=== PATIENT | male | born 1970 | race Caucasian/White ===

== ENCOUNTER → 2023-11-02 | Outpatient (CLI) | payer BC ==
--- NOTE | 2023-11-02 11:32 | CT ---
EXAMINATION TYPE: CT abdomen pelvis w con DATE OF EXAM: 11/02/2023 COMPARISON: NONE HISTORY: 53-year-old male K57.32 h/o abdominal pain, changes in bowel habits TECHNIQUE: Contiguous axial scanning of the abdomen and pelvis following administration of 100 ml Iso bogdan 300 IV contrast. Delayed images through the kidneys and coronal/sagittal reconstructions perform ed. CT DLP: 2541.6 mGycm Automated exposure control for dose reduction was used. FINDINGS: The heart is normal size without pericardial effusion. Lung bases clear without pleural effusion. Low attenuation of the hepatic parenchyma without focal lesion. Portal venous system is patent. No bi liary ductal dilatation is apparent. Gallbladder, adrenal glands, kidneys, and pancreas within normal limits. The spleen is enlarged at 16.3 cm measured on coronal series. Hilar splenule noted. No dilated small bowel, free fluid, or free air. No mesenteric or retroperitoneal lymphadenopathy. Normal appendix. Oral contrast progressed faintly into the sigmoid colon. Mild overall stool burden. Mild proximal sigmoid diverticulosis. There is irregular moderate circumferential wall thickening of the rectum with some presacral strandi ng and at least 10 rounded perirectal lymph nodes, largest measuring 1.2 cm. Patulous bilateral inguinal canals with fatty small to moderate-sized inguinal hernias. No other pelv ic lymphadenopathy seen. No abnormal fluid collection in the pelvis. Bones: Mild degenerative change of the hips. Facet arthropathy lower lumbar spine. Nonspecific sclerotic focus towards the left L3 pedicle. Additional small vertebral body focus on the right at L3. Nonspecific. Probably bone islands. No osseous destructive process seen. IMPRESSION: 1. MODERATE IRREGULAR CIRCUMFERENTIAL WALL THICKENING OF THE RECTUM WITH SOME PRESACRAL STRANDING AND NUMEROUS ADJACENT PERIRECTAL LYMPH NODES MEASURING UP TO 1.2 CM. RECTAL CARCINOMA SHOULD BE EXCLUDED . 2. A COUPLE NONSPECIFIC SCLEROTIC FOCI WITHIN THE L3 VERTEBRAL BODY MAY REPRESENT BONE ISLANDS. IF FU RTHER WORKUP REVEALS RECTAL CARCINOMA, CONSIDER FURTHER TESTING WITH NUCLEAR MEDICINE BONE SCAN TO SESS FOR ANY ABNORMAL UPTAKE. 3. INCIDENTAL: HEPATIC STEATOSIS. SPLENOMEGALY AT 16.3 CM. CLINICALLY CORRELATE.
== END | disposition home or self-care (01) ==
LOC: RADCTMAIN 09:27
PROVIDERS: ATTEND Surgery Plastic and Reconstructive Surgery
DX: K57.32 Diverticulitis of large intestine without perforation or abscess without bleeding (principal); K76.0 Fatty (change of) liver, not elsewhere classified; K62.89 Other specified diseases of anus and rectum; R16.1 Splenomegaly, not elsewhere classified
CPT/HCPCS: 74177; Q9967

== ENCOUNTER 2023-12-21 08:54 | Day surgery (SDC) | payer BC ==
[2023-12-16 13:16] VITALS: BMI 34.9
[~2023-12-21 08:54] MED LIST: LACTATED RINGERS 1,000 ML IV SCH
--- NOTE | 2023-12-21 09:02 | P.GSHP ---
History of Present Illness H&P Date: 12/21/23 CHIEF COMPLAINT: Colon screen HISTORY OF PRESENT ILLNESS: The patient is a 53-year-old male who presents for colon screen. Lower endoscopy was offered for further evaluation and management. PAST MEDICAL HISTORY: Please see list. PAST SURGICAL HISTORY: Please see list. MEDICATIONS: Please see list. ALLERGIES: Please see list. SOCIAL HISTORY: No illicit drug use FAMILY HISTORY: No reports of Crohn disease or ulcerative colitis. REVIEW OF ORGAN SYSTEMS: CONSTITUTIONAL: No reports of fevers or chills. PHYSICAL EXAM: VITAL SIGNS: Stable GENERAL: Well-developed pleasant in no acute distress. HEENT: No scleral icterus. Extraocular movements grossly intact. Moist buccal mucosa. NECK: Supple without lymphadenopathy. CHEST: Unlabored respirations. Equal bilateral excursions. CARDIOVASCULAR: Regular rate and rhythm. Distal 2+ pulses. ABDOMEN: Soft, nontender, nondistended. MUSCULOSKELETAL: No clubbing, cyanosis, or edema. ASSESSMENT: 1. Colon screen. PLAN: 1. Recommend proceeding with a lower endoscopy Past Medical History Past Medical History: Hypertension Additional Past Medical History / Comment(s): gout, recently lost 65 lbs - was on metformin to help w/ weight loss History of Any Multi-Drug Resistant Organisms: None Reported Additional Past Surgical History / Comment(s): colonoscopy Past Anesthesia/Blood Transfusion Reactions: No Reported Reaction Additional Past Anesthesia/Blood Transfusion Reaction / Comment(s): has never had general anesthetic Smoking Status: Never smoker - Past Family History Father Family Medical History: Coronary Artery Disease (CAD) Additional Family Medical History / Comment(s): cardiac stents Medications and Allergies Home Medications Medication Instructions Recorded Confirmed Type Aspirin 81 mg PO HS 11/22/23 12/16/23 History Losartan Potassium 50 mg PO HS 11/22/23 12/16/23 History Sertraline [Zoloft] 100 mg PO HS 11/22/23 12/16/23 History allopurinoL [Zyloprim] 100 mg PO HS 11/22/23 12/16/23 History hydroCHLOROthiazide 12.5 mg PO QAM 11/22/23 12/16/23 History Allergies Allergy/AdvReac Type Severity Reaction Status Date / Time Penicillins Allergy Swelling Verified 12/16/23 12:53
[2023-12-21] MEDS: LACTATED RINGERS 1,000 ML IV ONE ×2 (09:10→09:28)
[2023-12-21] MEDS ORDERED: PROPOFOL 10 MG/ML 20 ML VIAL IV ONE (09:29)
[2023-12-21] MEDS: IV FLUID CONTINUATION 1,000 ML IV ONE (09:46)
[2023-12-21 09:51] VITALS: RESP 16; TEMP 97.2
[2023-12-21 09:53] VITALS: PULSE 78
[2023-12-21 10:39] VITALS: BP 123/78
--- NOTE | 2023-12-21 10:46 | P.PCN ---
Date of Procedure: 12/21/23 Description of Procedure: PREOPERATIVE DIAGNOSIS: Rectal bleeding Colitis Family history diverticulitis Colonoscopy screening, first Abnormal CT scan for rectal mass POSTOPERATIVE DIAGNOSIS: Chronic constipation Rectal neoplasm, OPERATION: Colonoscopy to the ileocecal valve and appendiceal orifice, cecum Colonoscopy with hot snare polypectomy Colonoscopy with cold forceps biopsy SURGEON: Jeannie Delarosa MD. ANESTHESIA: MAC. INDICATIONS: The patient is an 64-year-old male who presents family history of malignant colon polyps and personal history of colon polyps. Last colonoscopy 5 years. Benefits and risks were described and informed consent was obtained. DESCRIPTION OF PROCEDURE: The patient had undergone Sutab prep. The patient had been brought into the operating room and laid in the left lateral decubitus position. After adequate intravenous sedation, the rectum was examined with 2% lidocaine jelly. The prostate was unremarkable. External hemorrhoids were encountered. The rectal tone was within normal limits. No lesions were palpated in the rectal vault. An Olympus colonoscope was advanced until the cecum, ileocecal valve and appendiceal orifice were clearly viewed. The prep was fair. Sigmoid diverticulosis was encountered. Colonic polyps were found and removed. No ev idence of focal colitis was found. Retroflexion of the scope demonstrated grade 2 internal hemorrhoids without active bleeding or inflammation. The colon was desufflated. The patient had tolerated the procedure well. Withdrawal time was over 6 minutes. FINDINGS: Aronchick preparation quality scale 1 (1-5) Internal hemorrhoids, grade 3 with recent inflammation and bleeding External hemorrhoids, grade 4. No arteriovenous malformations. Sigmoid diverticulosis Removal of 2 polyps: - Snare polypectomy 20 cm from the anal verge, 5 mm tubulovillous adenoma polyp. - Snare polypectomy 39 cm from the anal verge, 8 mm flat villous adenoma polyp. - Snare polypectomy 50 cm from the anal verge, 12 mm flat villous adenoma polyp. - Cold forceps biopsy at 30 cm from the anal verge, 4 mm polyp. - Cold forceps biopsy at 40 cm from the anal verge, 5 mm polyp. - Cold forceps biopsy at 45 cm from the anal verge, 4 mm polyp. - Cold forceps biopsy at 55 cm from the anal verge, 3 mm polyp. - Cold forceps biopsy at 60 cm from the anal verge, 4 mm polyp. - Cold forceps biopsy at 65 cm from the anal verge, 3 mm polyp. - Cold forceps biopsy at 75 cm from the anal verge, 4 mm polyp. - Cold forceps biopsy at mid transverse colon, 5 mm polyp. - Cold forceps biopsy at proximal transverse colon, 4 mm polyp. No focal colitis. RECOMMENDATIONS: Given severity of tubular adenomas, recommend repeat colonoscopy 1 year. Findings consistent with rectal carcinoma 50 cm to for circumference 10 cm from the rectal verge to the anal verge firm, friable, snare polypectomy including cold forcep biopsies obtained. CT of the abdomen pelvis previously obtained. Patient discussed will need MRI, chemoradiation, referral to colorectal specialist for additional management. Very poor prep, grade 4+, will likely need repeat scope due to poor prep Plan - Discharge Summary Discharge Rx Participant: No New Discharge Prescriptions: Continue hydroCHLOROthiazide 12.5 mg PO QAM allopurinoL [Zyloprim] 100 mg PO HS Sertraline [Zoloft] 100 mg PO HS Losartan Potassium 50 mg PO HS Aspirin 81 mg PO HS Discharge Medication List Aspirin 81 mg PO HS 11/22/23 [History] Losartan Potassium 50 mg PO HS 11/22/23 [History] Sertraline [Zoloft] 100 mg PO HS 11/22/23 [History] allopurinoL [Zyloprim] 100 mg PO HS 11/22/23 [History] hydroCHLOROthiazide 12.5 mg PO QAM 11/22/23 [History] Follow up Appointment(s)/Referral(s): Jeannie Delarosa MD [STAFF PHYSICIAN] - 12/27/23 4:00 pm Patient Instructions/Handouts: *Surgery [facility] - (Anesthesia) Discharge Instructions Outpatient Surgery, Colorectal Polyps (GEN) Activity/Diet/Wound Care/Special Instructions: Follow-up in the office for biopsy results Discharge Disposition: HOME SELF-CARE
== END 2023-12-21 10:52 | disposition home or self-care (01) ==
LOC: ORWHC2ENDO 08:54
PROVIDERS: ATTEND Surgery Plastic and Reconstructive Surgery
DX: C20 Malignant neoplasm of rectum (principal); K62.5 Hemorrhage of anus and rectum; K52.9 Noninfective gastroenteritis and colitis, unspecified; K59.09 Other constipation; K57.30 Diverticulosis of large intestine without perforation or abscess without bleeding; K64.2 Third degree hemorrhoids; F41.9 Anxiety disorder, unspecified; I10 Essential (primary) hypertension; E66.01 Morbid (severe) obesity due to excess calories; Z82.49 Family history of ischemic heart disease and other diseases of the circulatory system; Z79.82 Long term (current) use of aspirin; Z79.899 Other long term (current) drug therapy; Z88.0 Allergy status to penicillin; Z68.34 Body mass index [BMI] 34.0-34.9, adult
CPT/HCPCS: 88305; 45380; 45385; J2704

== ENCOUNTER → 2024-01-14 | Outpatient (CLI) | payer BC ==
--- NOTE | 2024-01-15 13:59 | PE ---
EXAMINATION TYPE: PET CT fusion skull to thigh DATE OF EXAM: 01/14/2024 CLINICAL INDICATION:Male, 53 years old with history of C20; TECHNIQUE: Following the intravenous administration of 11.2 mCi of F-18 FDG, whole body images are performed from the skull base to the midthigh. Images are reviewed on the computer in the coronal, a xial, and sagittal planes. Reconstructed rotating images are created on independent workstation and reviewed on the computer. A non-contrast CT is performed in conjunction with the PET scan. Glucose level 87 mg/dL CT DLP: 1086.93 mGycm, Automated exposure control for dose reduction was used. COMPARISON: CT 11/02/2023, PET/CT None, FINDINGS: Mediastinal SUV mean is 1.8. Hepatic parenchyma SUV mean is 2.6. SKULL BASE AND NECK: No suspicious radiotracer activity. CHEST, MEDIASTINUM, AND HILAR REGION: No suspicious radiotracer activity. ABDOMEN AND PELVIS: * Circumferential wall thickening of the rectum measuring up to 14 mm. Max SUV 28.6. * Multiple mesorectal fascia lymph node measuring up to 7 mm Max SUV 6.2. There is at least 6 lymph nodes identified. * Presacral lymph node measuring up to 13 mm with max SUV 14.7 MUSCULOSKELETAL STRUCTURES: No suspicious radiotracer activity. OTHER CT: Bilateral fat-containing inguinal hernias. IMPRESSION: Rectal wall thickening compatible with malignancy with multiple mesorectal fascia lymph nodes and pre sacral lymph nodes concerning for metastatic disease. No evidence for metastatic disease in the thora x or head and neck.
== END | disposition home or self-care (01) ==
LOC: RADPETMAIN 14:15
PROVIDERS: ATTEND Internal Medicine Hematology & Oncology
DX: C20 Malignant neoplasm of rectum (principal)
CPT/HCPCS: 78815; A9552

== ENCOUNTER → 2024-01-17 | Outpatient (CLI) | payer BC ==
--- NOTE | 2024-01-18 08:45 | MR ---
EXAMINATION TYPE: MR Rectal wo con DATE OF EXAM: 01/17/2024 9:55 AM CLINICAL INDICATION:Male, 53 years old with history of C20 MALIGNANT NEOPLASM OF RECTUM; [facility], COMPARISON: Pet/CT 01/14/2024. TECHNIQUE: Multiplanar, multisequence imaging was performed on a 3T MR scanner with optimized small f ield of view imaging of the rectum. Orthogonal high resolution T2 weighted imaging was obtained thro ugh the rectal mass with additional sequences including T1 weighted images and diffusion weighted kar ging. IV CONTRAST: None. FINDINGS: IMAGE QUALITY: Adequate PRIMARY TUMOR: MORPHOLOGY, LOCATION, AND CHARACTERISTICS: Distance to anal verge: 4.9 cm Distance to top of anal sphincter complex/anorectal junction: 0.0 cm Relationship to the anterior peritoneal reflection: below Craniocaudal length: 8.9 cm Circumferential location (o'clock position): 12 o'clock to 7 o'clock Morphology: Semi-Annular Mucinous: No MRI Rectal Cancer T Category: T3c (tumor penetrates >5-15 mm beyond muscularis propria). There is n o invasion of adjacent structures. FOR LOW RECTAL TUMORS - Invasion of anal sphincter complex Level of invasion: Upper anal canal EXTRAMURAL VENOUS INVASION (EMVI): Not definitively visualized. CIRCUMFERENTIAL RESECTION MARGIN (for T3 only) Shortest distance of tumor to MRF (or anticipated CRM): 1-4 mm (location) near the anorectal junctio n very close to the mesorectal fascia. (not applicable if tumor at peritonealized portion of the rectum) Is there a separate tumor deposit, lymph node, or EMVI threatening (> 1 mm and < 2 mm) or invading (< 1 mm) the mesorectal fascia (MRF) (if yes, note location): Yes LYMPH NODES: Mesorectal/superior rectal lymph nodes and/or tumor deposits: N3 - Presence of suspicious extra-mesorectal lymph nodes *Suspicious morphologic criteria: (1) round shape, (2) irregular borders, (3) heterogenous signal int ensity Superior most suspicious lymph node/deposit is located: Multiple presacral sacral promontory lymph no good present. Extra-mesorectal lymph nodes: any suspicious: Yes. Presacral lymph nodes/sacral promontory. (mesorectal, superior rectal, middle rectal, inferior rectal, sigmoid mesenteric, inferior mesenteric , lateral sacral, presacral, sacral promontory) Locoregional: internal iliac, obturator M1: external iliac, common iliac, inguinal, retroperitoneal OTHER: Prostatomegaly. IMPRESSION: T Stage: T3c (tumor penetrates >5-15 mm beyond muscularis propria). N Stage: N3 - Presence of suspicious extra-mesorectal lymph nodes CRM: Threatened Sphincter Involvement: Yes Suspicious extramesorectal nodes: Yes
== END | disposition home or self-care (01) ==
LOC: RADMRIMAIN 08:46
PROVIDERS: ATTEND Internal Medicine Hematology & Oncology
DX: C20 Malignant neoplasm of rectum (principal)
CPT/HCPCS: 72195

== ENCOUNTER 2024-02-09 12:52 | Day surgery (SDC) | payer BC ==
[2024-02-07 10:02] VITALS: BMI 34.4
[~2024-02-09 12:52] MED LIST changes: +HYDROmorphone 0.5 MG/0.5 ML SYRINGE IVP PRN; +LIDOCAINE 1% (10MG/ML) FOR IV START INTRADERMA PRN; +MIDAZOLAM 2 MG/2 ML VIAL IV PRN; +Pre Op ABX Message 1 EACH MISC MISCELLANE ONE; +fentaNYL (PF) 50 MCG/ML 2 ML AMP IVP PRN
[2024-02-09] MEDS: IV FLUID CONTINUATION 1,000 ML IV ONE (13:30)
--- NOTE | 2024-02-09 13:40 | P.GSHP ---
History of Present Illness H&P Date: 02/09/24 Chief Complaint: Rectal cancer 53-year-old male recently diagnosed in December with stage III rectal cancer. Patient will be starting neoadjuvant chemoradiation in the near future. Here for Port-A-Cath. Has not had 1 previously. Past Medical History Past Medical History: Cancer, Hypertension Additional Past Medical History / Comment(s): gout, NEW DX RECTAL CANCER History of Any Multi-Drug Resistant Organisms: None Reported Additional Past Surgical History / Comment(s): colonoscopy Past Anesthesia/Blood Transfusion Reactions: No Reported Reaction Additional Past Anesthesia/Blood Transfusion Reaction / Comment(s): has never had general anesthetic Smoking Status: Never smoker - Past Family History Father Family Medical History: Coronary Artery Disease (CAD) Additional Family Medical History / Comment(s): cardiac stents Brother(s) Family Medical History: Cancer Additional Family Medical History / Comment(s): SKIN Medications and Allergies Home Medications Medication Instructions Recorded Confirmed Type Losartan Potassium 25 mg PO HS 11/22/23 02/09/24 History Sertraline [Zoloft] 100 mg PO HS 11/22/23 02/09/24 History allopurinoL [Zyloprim] 100 mg PO HS 11/22/23 02/09/24 History hydroCHLOROthiazide 12.5 mg PO QAM 11/22/23 02/09/24 History Allergies Allergy/AdvReac Type Severity Reaction Status Date / Time Penicillins Allergy Swelling Verified 02/09/24 13:38 shellfish derived [Shellfish] Allergy Swelling Verified 02/09/24 13:38 Surgical - Exam Physical exam: General: Well-developed, well-nourished HEENT: Normocephalic, sclerae nonicteric Abdomen: Nontender, nondistended Extremities: No edema Neuro: Alert and oriented Assessment and Plan (1) Rectal cancer Narrative/Plan: Will proceed with Port-A-Cath placement at this time. Risks of bleeding, infe ction, DVT, pneumothorax, catheter malfunction, anesthesia related complications were discussed. The patient understands and wishes to proceed. Current Visit: Yes Status: Acute Code(s): C20 - MALIGNANT NEOPLASM OF RECTUM SNOMED Code(s): 788702478
[2024-02-09] MEDS: ONDANSETRON 4 MG/2 ML VIAL IVP ONE (14:06)
[2024-02-09] MEDS: DEXAMETHASONE SOD PHOSPHATE 4 MG/ML 1 ML VIAL IV ONE (14:06)
[2024-02-09] MEDS: HEPARIN SODIUM,PORCINE 5,000 UNIT/ML 1 ML VIAL SQ PRN (14:07)
[2024-02-09] MEDS: ACETAMINOPHEN TAB 500 MG TAB PO PRN (14:07)
[2024-02-09] MEDS ORDERED: LIDOCAINE 1% INJ 10MG/ML (20 ML MDV) ONE (14:59)
[2024-02-09] MEDS ORDERED: MIDAZOLAM 2 MG/2 ML VIAL ONE (14:59)
[2024-02-09] MEDS ORDERED: SUCCINYLCHOLINE CHLORIDE 200 MG/10 ML VIAL IV ONE (14:59)
[2024-02-09] MEDS ORDERED: fentaNYL (PF) 50 MCG/ML 2 ML AMP ONE (14:59)
[2024-02-09] MEDS ORDERED: PROPOFOL 10 MG/ML 20 ML VIAL IV ONE (14:59)
[2024-02-09] MEDS: SODIUM CHLORIDE 0.9% 50 ML with ceFAZolin 2,000 MG IV ONE (15:03)
[2024-02-09] MEDS: LIDOCAINE 1% INJ 10MG/ML (20 ML MDV) SQ ONE ×2 (15:38)
[2024-02-09 16:17] VITALS: TEMP 97.6
--- NOTE | 2024-02-09 16:51 | XR ---
EXAMINATION TYPE: XR chest 1V portable DATE OF EXAM: 02/09/2024 Comparison: PET/CT 01/14/2024 Clinical History: 53-year-old male POST PORT-A-CATH PLACEMENT Findings: Heart upper limits of normal in size. Prominent bandlike areas of opacity probably atelectasis. More focal patchy density at the left base and also at the right apex. Graft placement of right anterior c hest wall injection port. Catheter tip at the mid SVC level. Impression: 1. Right anterior chest wall injection port with catheter tip at the mid SVC level. 2. New focal right apical opacity and left basilar opacity. Findings could represent areas of patchy atelectasis versus developing infiltrate. If concern for vascular complication after port placement, CT can exclude hematoma at the right apex. 3. Other bandlike areas of atelectasis in the lungs.
[2024-02-09 17:51] VITALS: RESP 14
--- NOTE | 2024-02-09 18:21 | P.OP ---
Date of Procedure: 02/09/24 Procedure(s) Performed: PREOPERATIVE DIAGNOSIS: rectal cancer POSTOPERATIVE DIAGNOSIS: Same PROCEDURE: Port-A-Cath placement SURGEON: Rachel EBL: Minimal ANESTHESIA: Sedation COMPLICATIONS: None OPERATIVE PROCEDURE: Patient was brought and placed on the operative table in the supine position. The patient was sedated per anesthesia that time. The chest and neck were prepped and draped in usual sterile fashion. The ultrasound probe was used to identify the location of the right internal jugular vein. The skin was localized with lidocaine. The Seldinger needle was advanced into the IJ under ultrasound guidance. The wire was advanced through the needle under fluoroscopic guidance into the superior vena cava. A port pocket was created in the right infraclavicular location. The catheter was tunneled from the wire entrance site to the port pocket. The port was then connected to the catheter. The dilator introducer was threaded over the guidewire. The guidewire and dilator were then removed. The catheter was advanced through the introducer and introducer was then removed. The tip was seen to be in the right atrial junction. Port was flushed with both saline and a Hep-Lock solution. There was good flow both in and out of the port. The port was sutured in underlying tissues using 3-0 silk sutures. The subcutaneous tissues were reapproximated using 3-0 Vicryl sutures and the skin at both locations using 4-0 Monocryl sutures. Steri-Strips and sterile dressings then applied. DISPOSITION: Stable to recovery room
[2024-02-09 18:31] VITALS: BP 139/81; PULSE 84
--- NOTE | 2024-02-10 12:01 | FL ---
EXAMINATION TYPE: FL guided central line placemt Intraoperative/procedural fluoroscopic services were provided. Total fluoroscopy time is 11.2 seconds with a total of 1 submitted images to PACS. Please see the operative/procedural note for further details. DAP: 1.0204 Gycm2
== END 2024-02-09 18:52 | disposition home or self-care (01) ==
LOC: OR 12:52
PROVIDERS: ATTEND Surgery
DX: C20 Malignant neoplasm of rectum (principal); I10 Essential (primary) hypertension; M10.9 Gout, unspecified; F41.9 Anxiety disorder, unspecified; F12.90 Cannabis use, unspecified, uncomplicated; Z91.013 Allergy to seafood; Z88.0 Allergy status to penicillin; Z79.899 Other long term (current) drug therapy
CPT/HCPCS: 77001; 71045; 36561; C1788; J2250; J0330; J1644; J1100; J2405; J0690; J2001; J3010; J1642; J2704

== ENCOUNTER 2024-02-14 18:46 | Emergency (ER) | payer BC ==
[2024-02-14 18:56] VITALS: RESP 18; TEMP 97.8
--- NOTE | 2024-02-14 19:25 | ED ---
General Adult HPI - General Chief complaint: Nausea/Vomiting/Diarrhea Stated complaint: low pulse/chemo port out/vomitting Time Seen by Provider: 02/14/24 19:15 Source: patient, RN notes reviewed, old records reviewed Mode of arrival: ambulatory Limitations: no limitations - History of Present Illness Initial comments: This is a 53-year-old male who presents to the emergency department complaining of nausea vomiting. Patient states he got his first dose of chemo yesterday and was sent home with a infusion of chemo via his new port. Patient states has not been able to keep anything down all day and he has been vomiting since 8:00 this morning. Patient states he was told by Dr. Vidal to come in and get evaluated and to have the chemo stopped. Patient denies any fever or chills. Patient has any abdominal pain. Patient denies any chest pain Diffley breathing shortness of breath. - Related Data Home Medications Medication Instructions Recorded Confirmed Losartan Potassium 25 mg PO HS 11/22/23 02/09/24 Sertraline [Zoloft] 100 mg PO HS 11/22/23 02/09/24 allopurinoL [Zyloprim] 100 mg PO HS 11/22/23 02/09/24 hydroCHLOROthiazide 12.5 mg PO QAM 11/22/23 02/09/24 Allergies Allergy/AdvReac Type Severity Reaction Status Date / Time Penicillins Allergy Swelling Verified 02/14/24 18:56 shellfish derived [Shellfish] Allergy Swelling Verified 02/14/24 18:56 Review of Systems ROS Statement: Those systems with pertinent positive or pertinent negative responses have been documented in the HPI. ROS Other: All systems not noted in ROS Statement are negative. Past Medical History Past Medical History: Hypertension Additional Past Medical History / Comment(s): gout, recently lost 65 lbs - was on metformin to help w/ weight loss History of Any Multi-Drug Resistant Organisms: None Reported Additional Past Surgical History / Comment(s): colonoscopy Past Anesthesia/Blood Transfusion Reactions: No Reported Reaction Additional Past Anesthesia/Blood Transfusion Reaction / Comment(s): has never had general anesthetic Past Psychological History: Anxiety Smoking Status: Never smoker - Past Family History Father Family Medical History: Coronary Artery Disease (CAD) Additional Family Medical History / Comment(s): cardiac stents Brother(s) Family Medical History: Cancer Additional Family Medical History / Comment(s): SKIN General Exam - General Exam Comments Initial Comments: GENERAL: Patient is well-developed and well-nourished. Patient is nontoxic and well- hydrated and is in mild distress. ENT: Neck is soft and supple. No significant lymphadenopathy is noted. Oropharynx is clear. Moist mucous membranes. Neck has full range of motion without eliciting any pain. EYES: The sclera were anicteric and conjunctiva were pink and moist. Extraocular movements were intact and pupils were equal round and reactive to light. Eyelids were unremarkable. PULMONARY: Unlabored respirations. Good breath sounds bilaterally. No audible rales rhonchi or wheezing was noted. CARDIOVASCULAR: There is a regular rate and rhythm without any murmurs gallops or rubs. ABDOMEN: Soft and nontender with normal bowel sounds. SKIN: Skin is clear with no lesions or rashes and otherwise unremarkable. NEUROLOGIC: Patient is alert and oriented x3. Cranial nerves II through XII are grossly intact. Motor and sensory are also intact. Normal speech, volume and content. Symmetrical smile. MUSCULOSKELETAL: Normal extremities with adequate strength and full range of motion. LYMPHATICS: No significant lymphadenopathy is noted PSYCHIATRIC: Normal psychiatric evaluation. Limitations: no limitations Course Vital Signs 02/14/24 18:53 Temperature 97.8 F Pulse Rate 82 Respiratory 18 Rate Blood Pressure 146/94 O2 Sat by Pulse 96 Oximetry Medical Decision Making - Medical Decision Making Was pt. sent in by a medical professional or institution (LATISHA Viramontes, VEGETABLE CUTTER, urgent care, hospital, or [facility]...) When possible be specific @ -Patient was sent in by his oncologist Did you speak to anyone other than the patient for history (EMS, parent, family, police, friend...)? What history was obtained from this source @ -No Did you review nursing and triage notes (agree or disagree)? Why? @ -I reviewed and agree with nursing and triage notes Were old charts reviewed (outside hosp., previous admission, EMS record, old EK G, old radiological studies, urgent care reports/EKG's, [facility] records)? Report findings @ -No old charts were reviewed Differential Diagnosis? @ -Gastroenteritis, gastritis, adverse reaction to chemotherapy, this is not an all-inclusive list EKG interpreted by me (3pts min.). @ -As above X-rays interpreted by me (1pt min.). @ -None done CT interpreted by me (1pt min.). @ -None done U/S interpreted by me (1pt. min.). @ -None done What testing was considered but not performed or refused? (CT, X-rays, U/S, labs)? Why? @ -None What meds were considered but not given or refused? Why? @ -None Did you discuss the management of the patient with other professionals (professionals i.e. DrJames, PA, VEGETABLE CUTTER, lab, RT, psych nurse, administrator social welfare, knot tying operator, teacher, tactical intelligence officer, field nurse case manager)? Give summary @ -I spoke with Dr. Mendez he wanted the patient's chemo stopped and evaluated. Was smoking cessation discussed for >3mins.? @ -No Was critical care preformed (if so, how long)? @ -No Were there social determinants of health that impacted care today? How? (Homelessness, low income, unemployed, alcoholism, drug addiction, transportation, low edu. Level, literacy, decrease access to med. care, skilled nursing, rehab)? @ -No Was there de-escalation of care discussed even if they declined (Discuss DNR or withdrawal of care, Hospice)? DNR status @ -No What co-morbidities impacted this encounter? (DM, HTN, Smoking, COPD, CAD, Cancer, CVA, ARF, Chemo, Hep., AIDS, mental health diagnosis, sleep apnea, morbi d obesity)? @ -None Was patient admitted / discharged? Hospital course, mention meds given and route , prescriptions, significant lab abnormalities, going to OR and other pertinent info. @ -Patient was given 2 L normal saline. Patient's lab work was normal. Patient was feeling much better and he will be discharged home. Patient's chemo was also halted Undiagnosed new problem with uncertain prognosis? @ -No Drug Therapy requiring intensive monitoring for toxicity (Heparin, Nitro, Insulin, Cardizem)? @ -No Were any procedures done? @ -No Diagnosis/symptom? @ -Adverse medication reaction Acute, or Chronic, or Acute on Chronic? @ -Acute Uncomplicated (without systemic symptoms) or Complicated (systemic symptoms)? @ -Complicated Side effects of treatment? @ -No Exacerbation, Progression, or Severe Exacerbation? @ -No Poses a threat to life or bodily function? How? (Chest pain, USA, MA, pneumonia, PE, COPD, DKA, ARF, appy, cholecystitis, CVA, Diverticulitis, Homicidal, Suicidal, threat to staff... and all critical care pts) @ -No - Lab Data Result diagrams: 02/14/24 19:23 02/14/24 19:23 Lab Results 02/14/24 02/14/24 Range/Units 19:23 19:23 WBC 9.8 (3.8-10.6) k/uL RBC 4.47 (4.30-5.90) m/uL Hgb 12.4 L (13.0-17.5) gm/dL Hct 38.3 L (39.0-53.0) % MCV 85.5 (80.0-100.0) fL MCH 27.7 (25.0-35.0) pg MCHC 32.4 (31.0-37.0) g/dL RDW 13.4 (11.5-15.5) % Plt Count 219 (150-450) k/uL MPV 8.0 Neutrophils % 78 % Lymphocytes % 13 % Monocytes % 5 % Eosinophils % 1 % Basophils % 0 % Neutrophils # 7.7 (1.3-7.7) k/uL Lymphocytes # 1.3 (1.0-4.8) k/uL Monocytes # 0.5 (0-1.0) k/uL Eosinophils # 0.1 (0-0.7) k/uL Basophils # 0.0 (0-0.2) k/uL Sodium 139 (137-145) mmol/L Potassium 3.8 (3.5-5.1) mmol/L Chloride 107 (98-107) mmol/L Carbon Dioxide 26 (22-30) mmol/L Anion Gap 6 mmol/L BUN 17 (9-20) mg/dL Creatinine 0.76 (0.66-1.25) mg/dL Est GFR (CKD-EPI)AfAm >90 (>60 ml/min/1.73 sqM) Est GFR (CKD-EPI)NonAf >90 (>60 ml/min/1.73 sqM) Glucose 115 H (74-99) mg/dL Calcium 8.8 (8.4-10.2) mg/dL Magnesium 2.0 (1.6-2.3) mg/dL Total Bilirubin 0.5 (0.2-1.3) mg/dL AST 17 (17-59) U/L ALT 7 (4-49) U/L Alkaline Phosphatase 40 (38-126) U/L Total Protein 6.2 L (6.3-8.2) g/dL Albumin 3.7 (3.5-5.0) g/dL Disposition Clinical Impression: Vomiting due to chemotherapy Disposition: HOME SELF-CARE Condition: Good Instructions (If sedation given, give patient instructions): Acute Nausea and Vomiting (ED) Is patient prescribed a controlled substance at d/c from ED?: No Referrals: Tony Jolly MD [Primary Care Provider] - 1-2 days Time of Disposition: 20:44
[2024-02-14 19:31] LABS: Basophils % (A) 0 %; Eosinophils # (A) 0.1 k/uL (0-0.7); Eosinophils % (A) 1 %; HCT 38.3 % (39.0-53.0); HGB 12.4 gm/dL (13.0-17.5); Lymphocytes # (A) 1.3 k/uL (1.0-4.8); Lymphocytes % (A) 13 %; MCH 27.7 pg (25.0-35.0); MCHC 32.4 g/dL (31.0-37.0); MCV 85.5 fL (80.0-100.0); Monocytes # (A) 0.5 k/uL (0-1.0); Monocytes % (A) 5 %; Neutrophils # (A) 7.7 k/uL (1.3-7.7); Neutrophils % (A) 78 %; Platelet Count 219 k/uL (150-450); RBC 4.47 m/uL (4.30-5.90); RDW 13.4 % (11.5-15.5); WBC 9.8 k/uL (3.8-10.6)
[2024-02-14] MEDS: SODIUM CHLORIDE 0.9% 2,000 ML IV ONE (19:36)
[2024-02-14] MEDS: ONDANSETRON 4 MG/2 ML VIAL IVP STA (19:36)
[2024-02-14 19:56] LABS: Anion Gap 6 mmol/L; Blood Urea Nitrogen 17 mg/dL (9-20); Carbon Dioxide 26 mmol/L (22-30); Chloride 107 mmol/L (98-107); Glucose 115 mg/dL (74-99); Potassium 3.8 mmol/L (3.5-5.1); Sodium 139 mmol/L (137-145)
[2024-02-14 19:57] LABS: ALT 7 U/L (4-49); AST 17 U/L (17-59); African American GFR (CKD) >90 (>60 ml/min/1.73 sqM); Albumin 3.7 g/dL (3.5-5.0); Alkaline Phosphatase 40 U/L (38-126); Calcium 8.8 mg/dL (8.4-10.2); Non-African American GFR(CKD) >90 (>60 ml/min/1.73 sqM); Total Bilirubin 0.5 mg/dL (0.2-1.3); Total Protein 6.2 g/dL (6.3-8.2)
[2024-02-14 21:05] VITALS: BP 129/75; PULSE 64
== END 2024-02-14 21:24 | disposition home or self-care (01) ==
LOC: EC 18:46
DX: R11.2 Nausea with vomiting, unspecified (principal); T45.1X5A Adverse effect of antineoplastic and immunosuppressive drugs, initial encounter; Z88.0 Allergy status to penicillin; Z91.013 Allergy to seafood
CPT/HCPCS: 36415; 80053; 83735; 85025; 99284; 96374; 96361 ×2; J2405; J1642

== ENCOUNTER 2024-10-12 02:22 | Emergency (ER) | payer BC ==
[2024-10-12 02:30] VITALS: RESP 16; TEMP 98.6
--- NOTE | 2024-10-12 02:45 | ED ---
Abdominal Pain HPI - General Chief Complaint: Abdominal Pain Stated Complaint: Abd pain Time Seen by Provider: 10/12/24 02:29 Source: patient, EMS Mode of arrival: EMS Limitations: no limitations - History of Present Illness Initial Comments: This patient is a 54-year-old man with history of colon cancer, who presents with complaint of pain in the side, at the costal margin. He states that it came on tonight after he had a couple of episodes of vomiting. The patient had initially noted some mild pain approximately a week ago when he had been stret alex and felt a pop at that site. The symptoms were initially mild so he was not too concerned. After tonight vomiting the pain became much more severe. Patient denies associated symptoms. No dyspnea, diaphoresis, lightheadedness or palpitations. There was the aforementioned vomiting but that was prior to the pain. No hematemesis. Patient notes pain is worsened with certain movements or palpitations MD Complaint: abdominal pain -: hour(s) Radiation: none Migration to: no migration Severity: severe Quality: sharp Consistency: constant Improves With: other (Immobilization) Worsens With: movement Associated Symptoms: denies other symptoms - Related Data Home Medications Medication Instructions Recorded Confirmed Losartan Potassium 25 mg PO HS 11/22/23 02/09/24 Sertraline [Zoloft] 100 mg PO HS 11/22/23 02/09/24 allopurinoL [Zyloprim] 100 mg PO HS 11/22/23 02/09/24 hydroCHLOROthiazide 12.5 mg PO QAM 11/22/23 02/09/24 Previous Rx's Medication Instructions Recorded methocarbamoL [Robaxin-750] 1,500 mg PO TID #42 tab 10/12/24 traMADol HCl [Ultram] 50 mg PO Q6H PRN #20 tab 10/12/24 Allergies Allergy/AdvReac Type Severity Reaction Status Date / Time Penicillins Allergy Swelling Verified 10/12/24 02:29 shellfish derived [Shellfish] Allergy Swelling Verified 10/12/24 02:29 Review of Systems ROS Statement: Those systems with pertinent positive or pertinent negative responses have been documented in the HPI. ROS Other: All systems not noted in ROS Statement are negative. Constitutional: Denies: fever, chills Respiratory: Denies: cough, dyspnea Cardiovascular: Denies: chest pain, palpitations, syncope Gastrointestinal: Reports: as per HPI, abdominal pain, nausea, vomiting. Denies: diarrhea, hematemesis, melena, hematochezia Genitourinary: Denies: dysuria, hematuria Musculoskeletal: Denies: back pain Skin: Denies: rash Neurological: Denies: headache, weakness Past Medical History Past Medical History: Hypertension Additional Past Medical History / Comment(s): gout, recently lost 65 lbs - was on metformin to help w/ weight loss History of Any Multi-Drug Resistant Organisms: None Reported Additional Past Surgical History / Comment(s): colonoscopy Past Anesthesia/Blood Transfusion Reactions: No Reported Reaction Additional Past Anesthesia/Blood Transfusion Reaction / Comment(s): has never had general anesthetic Past Psychological History: Anxiety Smoking Status: Never smoker - Past Family History Father Family Medical History: Coronary Artery Disease (CAD) Additional Family Medical History / Comment(s): cardiac stents Brother(s) Family Medical History: Cancer Additional Family Medical History / Comment(s): SKIN General Exam Limitations: no limitations General appearance: alert, in no apparent distress Head exam: Present: atraumatic, normocephalic Eye exam: Present: normal appearance. Absent: scleral icterus, conjunctival injection ENT exam: Present: normal oropharynx Neck exam: Present: normal inspection Respiratory exam: Present: normal lung sounds bilaterally. Absent: respiratory distress, wheezes, rales, rhonchi, stridor, accessory muscle use Cardiovascular Exam: Present: regular rate, normal rhythm, normal heart sounds. Absent: systolic murmur, diastolic murmur, rubs, gallop GI/Abdominal exam: Present: soft, tenderness (Patient has marked tenderness in the mid axillary line at the costal margin. There is no palpable hernia. No deformity or mass.). Absent: distended, guarding, rebound, rigid, mass, pulsatile mass, hernia Extremities exam: Present: normal inspection, normal capillary refill. Absent: pedal edema, calf tenderness Back exam: Present: normal inspection. Absent: CVA tenderness (R), CVA tenderness (L), vertebral tenderness Neurological exam: Present: alert Skin exam: Present: warm, dry, intact, normal color. Absent: rash Course Vital Signs 10/12/24 10/12/24 10/12/24 02:29 03:24 05:12 Temperature 98.6 F Pulse Rate 86 81 78 Respiratory 16 16 16 Rate Blood Pressure 135/65 122/69 133/80 O2 Sat by Pulse 94 L 94 L 96 Oximetry Medical Decision Making - Medical Decision Making The patient had chest and rib x-rays which I interpreted as negative for acute bony injury, negative for infiltrate or pneumothorax. Was pt. sent in by a medical professional or institution (LATISHA Viramontes, [employer], urgent care, hospital, or retirement...) When possible be specific @ -[No] Did you speak to anyone other than the patient for history (EMS, parent, family, police, friend...)? What history was obtained from this source @ -[No] Did you review nursing and triage notes (agree or disagree)? Why? @ -[I reviewed and agree with nursing and triage notes] Were old charts reviewed (outside hosp., previous admission, EMS record, old EKG, old radiological studies, urgent care reports/EKG's, retirement records)? Report findings @ -[No old charts were reviewed] Differential Diagnosis (chest pain, altered mental status, abdominal pain women, abdominal pain men, vaginal bleeding, weakness, fever, dyspnea, syncope, headache, dizziness, GI bleed, back pain, seizure, CVA, palpatations, mental health, musculoskeletal)? @ -[Differential Abdominal Pain Men: Appendicitis, cholecystitis, diverticulosis, ischemic bowel, pancreatitis, hepatitis, UTI, gastroenteritis, AAA, incarcerated hernia, bowel obstruction, constipation, inflammatory bowel, hepatitis, peptic ulcer disease, splenic infarction, perforated viscus, testicular torsion, this is not meant to be an all-inclusive list EKG interpreted by me (3pts min.). @ -[As above] X-rays interpreted by me (1pt min.). @ -[I interpreted as above CT interpreted by me (1pt min.). @ -[None done] U/S interpreted by me (1pt. min.). @ -[None done] What testing was considered but not performed or refused? (CT, X-rays, U/S, lab s)? Why? @ -[None] What meds were considered but not given or refused? Why? @ -[None] Did you discuss the management of the patient with other professionals (professionals i.e. LATISHA Viramontes, INS[employer], lab, RT, psych nurse, social services analyst, check embosser, teacher, financial compliance officer, casework supervisor)? Give summary @ -[No] Was smoking cessation discussed for >3mins.? @ -[No] Was critical care preformed (if so, how long)? @ -[No] Were there social determinants of health that impacted care today? How? (Homelessness, low income, unemployed, alcoholism, drug addiction, transportation, low edu. Level, literacy, decrease access to med. care, halfway, rehab)? @ -[No] Was there de-escalation of care discussed even if they declined (Discuss DNR or withdrawal of care, Hospice)? DNR status @ -[No] What co-morbidities impacted this encounter? (DM, HTN, Smoking, COPD, CAD, Cancer, CVA, ARF, Chemo, Hep., AIDS, mental health diagnosis, sleep apnea, morbid obesity)? @ -[None] Was patient admitted / discharged? Hospital course, mention meds given and route, prescriptions, significant lab abnormalities, going to OR and other pertinent info. @ -[Patient is 54-year-old man presenting with pain at the costal margin, the history and physical exam all consistent with strain of the muscle at the costal margin. No evident bony injury. Discussed appropriate further care and follow-up as well as return parameters. Undiagnosed new problem with uncertain prognosis? @ -[No] Drug Therapy requiring intensive monitoring for toxicity (Heparin, Nitro, Insulin, Cardizem)? @ -[No] Were any procedures done? @ -[No] Diagnosis/symptom? @ -[Acute strain of abdominal wall Acute, or Chronic, or Acute on Chronic? @ -[Acute Uncomplicated (without systemic symptoms) or Complicated (systemic symptoms)? @ -[Uncomplicated Side effects of treatment? @ -[No] Exacerbation, Progression, or Severe Exacerbation? @ -[No] Poses a threat to life or bodily function? How? (Chest pain, USA, MD, pneumonia, PE, COPD, DKA, ARF, appy, cholecystitis, CVA, Diverticulitis, Homicidal, Suicidal, threat to staff... and all critical care pts) @ -[No] All treatments are based on ideal body weight as in ED triage - Lab Data Result diagrams: 10/12/24 02:10/12/24 02: Lab Results 10/12/24 10/12/24 10/12/24 Range/Units 02:27 02:27 02:27 WBC 10.2 (3.8-10.6) k/uL RBC 4.26 L (4.30-5.90) m/uL Hgb 11.8 L (13.0-17.5) gm/dL Hct 37.1 L (39.0-53.0) % MCV 87.1 (80.0-100.0) fL MCH 27.7 (25.0-35.0) pg MCHC 31.8 (31.0-37.0) g/dL RDW 14.9 (11.5-15.5) % Plt Count 180 (150-450) k/uL MPV 8.1 Neutrophils % 70 % Lymphocytes % 18 % Monocytes % 8 % Eosinophils % 2 % Basophils % 0 % Neutrophils # 7.1 (1.3-7.7) k/uL Lymphocytes # 1.8 (1.0-4.8) k/uL Monocytes # 0.9 (0-1.0) k/uL Eosinophils # 0.2 (0-0.7) k/uL Basophils # 0.0 (0-0.2) k/uL Sodium 139 (137-145) mmol/L Potassium 4.0 (3.5-5.1) mmol/L Chloride 106 (98-107) mmol/L Carbon Dioxide 25 (22-30) mmol/L Anion Gap 8 mmol/L BUN 16 (9-20) mg/dL Creatinine 1.00 (0.66-1.25) mg/dL Est GFR (CKD-EPI)AfAm >90 (>60 ml/min/1.73 sqM) Est GFR (CKD-EPI)NonAf 84 (>60 ml/min/1.73 sqM) Glucose 155 H (74-99) mg/dL Plasma Lactic Acid Giovanny 1.2 (0.7-2.0) mmol/L Calcium 8.6 (8.4-10.2) mg/dL Total Bilirubin 0.3 (0.2-1.3) mg/dL AST 15 L (17-59) U/L ALT 10 (4-49) U/L Alkaline Phosphatase 45 (38-126) U/L Troponin I (0.000-0.034) ng/mL Total Protein 5.8 L (6.3-8.2) g/dL Albumin 3.3 L (3.5-5.0) g/dL 10/12/24 Range/Units 02:27 WBC (3.8-10.6) k/uL RBC (4.30-5.90) m/uL Hgb (13.0-17.5) gm/dL Hct (39.0-53.0) % MCV (80.0-100.0) fL MCH (25.0-35.0) pg MCHC (31.0-37.0) g/dL RDW (11.5-15.5) % Plt Count (150-450) k/uL MPV Neutrophils % % Lymphocytes % % Monocytes % % Eosinophils % % Basophils % % Neutrophils # (1.3-7.7) k/uL Lymphocytes # (1.0-4.8) k/uL Monocytes # (0-1.0) k/uL Eosinophils # (0-0.7) k/uL Basophils # (0-0.2) k/uL Sodium (137-145) mmol/L Potassium (3.5-5.1) mmol/L Chloride (98-107) mmol/L Carbon Dioxide (22-30) mmol/L Anion Gap mmol/L BUN (9-20) mg/dL Creatinine (0.66-1.25) mg/dL Est GFR (CKD-EPI)AfAm (>60 ml/min/1.73 sqM) Est GFR (CKD-EPI)NonAf (>60 ml/min/1.73 sqM) Glucose (74-99) mg/dL Plasma Lactic Acid Giovanny (0.7-2.0) mmol/L Calcium (8.4-10.2) mg/dL Total Bilirubin (0.2-1.3) mg/dL AST (17-59) U/L ALT (4-49) U/L Alkaline Phosphatase (38-126) U/L Troponin I <0.012 (0.000-0.034) ng/mL Total Protein (6.3-8.2) g/dL Albumin (3.5-5.0) g/dL - EKG Data -: EKG Interpreted by Or EKG shows normal: sinus rhythm, axis (Normal), intervals ( normal), QRS complexes (Normal), ST-T waves (Normal) Rate: normal (84 bpm) Disposition Clinical Impression: Strain of abdominal wall Disposition: HOME SELF-CARE Condition: Good Instructions (If sedation given, give patient instructions): Muscle Strain (ED) Prescriptions: methocarbamoL [Robaxin-750] 1,500 mg PO TID #42 tab traMADol HCl [Ultram] 50 mg PO Q6H PRN #20 tab PRN Reason: Pain Is patient prescribed a controlled substance at d/c from ED?: No Referrals: Tony Jolly MD [REFERRING] - 1-2 days
[2024-10-12] MEDS: KETOROLAC 15 MG/ML 1 ML VIAL IVP STA (02:47)
[2024-10-12 03:17] LABS: Basophils % (A) 0 %; Eosinophils # (A) 0.2 k/uL (0-0.7); Eosinophils % (A) 2 %; HCT 37.1 % (39.0-53.0); HGB 11.8 gm/dL (13.0-17.5); Lymphocytes # (A) 1.8 k/uL (1.0-4.8); Lymphocytes % (A) 18 %; MCH 27.7 pg (25.0-35.0); MCHC 31.8 g/dL (31.0-37.0); MCV 87.1 fL (80.0-100.0); Mean Platelet Volume 8.1; Monocytes # (A) 0.9 k/uL (0-1.0); Monocytes % (A) 8 %; Neutrophils # (A) 7.1 k/uL (1.3-7.7); Neutrophils % (A) 70 %; Platelet Count 180 k/uL (150-450); RBC 4.26 m/uL (4.30-5.90); RDW 14.9 % (11.5-15.5); WBC 10.2 k/uL (3.8-10.6)
[2024-10-12 03:28] LABS: ALT 10 U/L (4-49); AST 15 U/L (17-59); African American GFR (CKD) >90 (>60 ml/min/1.73 sqM); Albumin 3.3 g/dL (3.5-5.0); Alkaline Phosphatase 45 U/L (38-126); Anion Gap 8 mmol/L; Blood Urea Nitrogen 16 mg/dL (9-20); Calcium 8.6 mg/dL (8.4-10.2); Carbon Dioxide 25 mmol/L (22-30); Chloride 106 mmol/L (98-107); Glucose 155 mg/dL (74-99); Non-African American GFR(CKD) 84 (>60 ml/min/1.73 sqM); Sodium 139 mmol/L (137-145); Total Bilirubin 0.3 mg/dL (0.2-1.3); Total Protein 5.8 g/dL (6.3-8.2)
[2024-10-12] MEDS: ONDANSETRON 4 MG/2 ML VIAL IVP STA (03:58)
[2024-10-12] MEDS: MORPHINE SULFATE 4 MG/ML SYRINGE IV STA (04:00)
[2024-10-12] MEDS: LIDOCAINE 4% PATCH TOPICAL ONE (04:54)
[2024-10-12 05:13] VITALS: BP 133/80; PULSE 78
--- NOTE | 2024-10-12 05:18 | XR ---
EXAMINATION TYPE: XR ribs LT w pa chest xray DATE OF EXAM: 10/12/2024 2:59 AM COMPARISON: Chest x-ray February 09, 2024. CLINICAL INDICATION: Male, 54 years old with history of L chest pain, TECHNIQUE: Single frontal view of the chest is obtained. A frontal and oblique images of the left-reynaldo ed ribs. FINDINGS: Stable right internal jugular Mediport catheter. There is no focal air space opacity, pleu ral effusion, or pneumothorax seen. The cardiac silhouette size is within normal limits. The osseo us structures are intact. Dedicated images of the left-sided ribs show no acute displaced fracture. Overlying soft tissues are unremarkable. IMPRESSION: No acute process. [facility], , 10/12/2024 5:16 AM
== END 2024-10-12 05:13 | disposition home or self-care (01) ==
LOC: EC 02:22 → SUPCPDRO 02:22 → EC 05:13
DX: S39.011A Strain of muscle, fascia and tendon of abdomen, initial encounter (principal); Z85.038 Personal history of other malignant neoplasm of large intestine; Z88.0 Allergy status to penicillin; Z91.013 Allergy to seafood
CPT/HCPCS: 36415; 80053; 83605; 84484; 85025; 71101; 99285; 96374; 96375; J2270; J2405; J1885